=== PATIENT | female | born 1985 ===

== ENCOUNTER 2021-02-26 05:34 | Emergency (ER) | payer SELFPAY ==
[~2021-02-26] VITALS: Ht 152.4 cm; Wt 80.7 kg
[2021-02-26 05:42] VITALS: BP 186/117
== END 2021-02-26 06:00 | disposition left against medical advice (07) ==
LOC: ER 05:34
DX: R51.9 Headache, unspecified (principal); Z53.21 Procedure and treatment not carried out due to patient leaving prior to being seen by health care provider